=== PATIENT | female | born 1965 | race Caucasian/White ===

== ENCOUNTER 2017-05-13 09:52 | Emergency (ER) | payer OTHER ==
[~2017-05-13] VITALS: Ht 160 cm; Wt 64.0 kg
[2017-05-13 10:02] VITALS: BP 146/74
--- NOTE | 2017-05-13 10:08 | NUR ---
PATIENT AMBULATED TO BED 7 AT THIS TIME.
[2017-05-13] MEDS ORDERED: NACL 0.9% 1,000 ML IV ONE (10:45)
[2017-05-13] MEDS ORDERED: HYDROmorphone 1 MG/ML AMP IVP ONE (10:45)
[2017-05-13] MEDS ORDERED: ONDANSETRON 4 MG/2 ML VIAL IVP ONE (10:45)
--- NOTE | 2017-05-13 10:48 | NUR ---
Pt refusing IV insertion and blood draw. Pt states "I'm okay, I just want to rest." Dr. Bobby made aware.
[2017-05-13] MEDS ORDERED: ONDANSETRON 4 MG ODT PO ONE (10:50)
[2017-05-13 11:01] VITALS: BP 128/81
== END 2017-05-13 11:01 | disposition home or self-care (01) ==
LOC: MED 09:52
DX: T61.771A Other fish poisoning, accidental (unintentional), initial encounter (principal); Y92.89 Other specified places as the place of occurrence of the external cause
CPT/HCPCS: 36415; 81002; 81025; 99283

== ENCOUNTER 2017-12-24 07:06 | Outpatient (CLI) | payer OTHER ==
[2017-12-24 07:47] LABS: BASOPHILS # (AUTO) 0.2 K/uL (0.00-0.22); BASOPHILS % (AUTO) 4.5 % (0.0-2.0); EOSINOPHILS # (AUTO) 0.1 K/uL (0-0.4); HEMATOCRIT 42.4 % (36-48); HEMOGLOBIN 13.8 g/dL (12.0-16.0); LYMPHOCYTES # (AUTO) 1.9 K/uL (2.5-16.5); LYMPHOCYTES % (AUTO) 37.6 % (20.5-51.1); MEAN CORPUSCULAR HEMOGLOBIN 30 pg (27-31); MEAN CORPUSCULAR HGB CONC 33 g/dL (33-37); MEAN CORPUSCULAR VOLUME 91 fL (80-94); MONOCYTES # (AUTO) 0.4 K/uL (0.8-1.0); MONOCYTES % (AUTO) 8.4 % (1.7-9.3); NEUTROPHILS # (AUTO) 2.4 K/uL (1.8-7.7); NEUTROPHILS % (AUTO) 46.5 % (42.2-75.2); PLATELET COUNT (AUTO) 235 K/uL (140-450); RED BLOOD CELL COUNT(AUTO) 4.67 MIL/uL (4.20-5.40); RED CELL DISTRIBUTION WIDTH 12.4 % (11.6-13.7)
[2017-12-24 08:02] LABS: ALBUMIN 3.5 g/dL (3.4-5.0); ANION GAP 9.3 (8-16); CARBON DIOXIDE 30.6 mmol/L (21-32); CREATININE 0.6 mg/dL (0.6-1.3); POTASSIUM 3.9 mmol/L (3.5-5.1); TOTAL BILIRUBIN 0.4 mg/dL (0.0-1.0)
[2017-12-24 08:14] LABS: CHOL/HDL RATIO 2.9 (1-4.5)
== END 2017-12-24 19:37 | disposition home or self-care (01) ==
LOC: MLB 07:06
PROVIDERS: ATTEND Student in an Organized Health Care Education/Training Program
DX: Z00.01 Encounter for general adult medical examination with abnormal findings (principal); Z86.39 Personal history of other endocrine, nutritional and metabolic disease; Z12.39 Encounter for other screening for malignant neoplasm of breast
CPT/HCPCS: 36415; 80053; 85025

== ENCOUNTER 2018-06-07 17:33 | Emergency (ER) | payer OTHER ==
[~2018-06-07] VITALS: Ht 162.6 cm; Wt 63.5 kg
[2018-06-07 17:36] VITALS: BP 136/88
--- NOTE | 2018-06-07 17:40 | NUR ---
53Y/F BIB CO-WORKER TO ER C/O ANXIETY ATTACK X TODAY 20 MINUTES AGO. PT STATES "SHE HAS BEEN GOING THROUGH A LOT OF STRESS LATELY". PT IS AAOX 4; VSS; BREATHING EVEN AND UNLABORED AT THIS TIME; BED DOWN; BEDRAIL UP X 1; ER MD AWARE OF PT CONDITION.
--- NOTE | 2018-06-07 18:10 | NUR ---
Note melidaone in EDM - 06/07/18 at 1904 by MEDFL Patient discharged with v/s stable. Written and verbal after care instructions given and explained. Patient alert, oriented and verbalized understanding of instructions. Ambulatory with steady gait. All questions addressed prior to discharge. ID band removed. Patient advised to follow up with PMD. Rx of xanax given. Patient educated on indication of medication including possible reaction and side effects. Opportunity to ask questions provided and answered.
--- NOTE | 2018-06-07 18:18 | NUR ---
Patient being evaluated by physician at bedside.
[2018-06-07] MEDS ORDERED: LORazepam 2 MG/ML VIAL IM ONE (18:20)
[2018-06-07 19:04] VITALS: BP 134/85
== END 2018-06-07 19:04 | disposition home or self-care (01) ==
LOC: MED 17:33
DX: F41.9 Anxiety disorder, unspecified (principal); Z88.0 Allergy status to penicillin
CPT/HCPCS: 96372; 99284; J2060

== ENCOUNTER 2018-09-14 23:08 | Emergency (ER) | payer OTHER ==
[~2018-09-14] VITALS: Ht 162.6 cm; Wt 65.8 kg
[2018-09-14 23:10] VITALS: BP 141/77
[2018-09-14] MEDS ORDERED: ONDANSETRON 4 MG ODT PO ONE (23:55)
[2018-09-15 00:28] VITALS: BP 141/77
== END 2018-09-15 00:29 | disposition home or self-care (01) ==
LOC: MED 23:08
DX: R11.2 Nausea with vomiting, unspecified (principal); R19.7 Diarrhea, unspecified; R10.13 Epigastric pain; Z88.0 Allergy status to penicillin
CPT/HCPCS: 81025; 99283; Q0162; 81002

== ENCOUNTER 2018-10-22 21:20 | Emergency (ER) | payer OTHER ==
[~2018-10-22] VITALS: Ht 157.5 cm; Wt 61.2 kg
[2018-10-22 21:22] VITALS: BP 139/89
--- NOTE | 2018-10-22 21:22 | NUR ---
TO BED # 3 AMBULATORY , REPORT GIVEN TO ARMANDO RUBI
--- NOTE | 2018-10-22 21:32 | NUR ---
Dr. Gallo evaluating patient at bedside.
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
[2018-10-22] MEDS ORDERED: PHENAZOPYRIDINE 100 MG TAB PO ONE (21:40)
[2018-10-22] MEDS ORDERED: CIPROFLOXACIN 250 MG TAB PO ONE (21:40)
[2018-10-22] MEDS ORDERED: cefTRIAXone 1,000 MG in LIDOCAINE MPF 1% - 5 mL VIAL 2.1 ML IM ONE (21:45)
[2018-10-22 21:56] LABS: APPEARANCE,URINE CLOUDY (CLEAR); COLOR,URINE YELLOW (YELLOW); UGLUCOSE NEGATIVE (NEGATIVE)
[2018-10-22 21:57] LABS: BILIRUBIN,URINE NEGATIVE (NEGATIVE); BLOOD, URINE TRACE (NEGATIVE); LEUKOCYTE ESTERASE ,URINE 3+ (NEGATIVE); NITRITE, URINE NEGATIVE (NEGATIVE)
[2018-10-22 22:02] LABS: RBC,URINE 3-10 (FEW) /HPF (0-5); WBC,URINE 20-60 /HPF (0-5)
[2018-10-22 22:08] VITALS: BP 139/89
--- NOTE | 2018-10-22 22:08 | NUR ---
Patient discharged with v/s stable. Written and verbal after care instructions given and explained. Patient alert, oriented and verbalized understanding of instructions. Ambulatory with steady gait. All questions addressed prior to discharge. ID band removed. Patient advised to follow up with PMD. Rx of phenazopyridine hydrochloride and ciprofloxacin was given. Patient educated on indication of medication including possible reaction and side effects. Opportunity to ask questions provided and answered.
== END 2018-10-22 22:08 | disposition home or self-care (01) ==
LOC: MED 21:20
DX: N39.0 Urinary tract infection, site not specified (principal)
CPT/HCPCS: 81001; 87086; 96372; 99283; J0696; J2001

== ENCOUNTER 2019-04-20 07:28 | Outpatient (CLI) | payer OTHER ==
[2019-04-20 08:44] LABS: BASOPHILS % (AUTO) 0.7 % (0.0-2.0); EOSINOPHILS # (AUTO) 0.1 K/uL (0-0.4); EOSINOPHILS % (AUTO) 2.2 % (0.0-4.0); HEMATOCRIT 42.6 % (36-48); HEMOGLOBIN 14.1 g/dL (12.0-16.0); LYMPHOCYTES # (AUTO) 1.7 K/uL (2.5-16.5); MEAN CORPUSCULAR HEMOGLOBIN 30 pg (27-31); MEAN CORPUSCULAR HGB CONC 33 g/dL (33-37); MEAN CORPUSCULAR VOLUME 90.4 fL (80-94); MONOCYTES # (AUTO) 0.5 K/uL (0.8-1.0); MONOCYTES % (AUTO) 10.5 % (1.7-9.3); NEUTROPHILS # (AUTO) 2.3 K/uL (1.8-7.7); NEUTROPHILS % (AUTO) 49.6 % (42.2-75.2); PLATELET COUNT (AUTO) 264 K/uL (140-450); RED BLOOD CELL COUNT(AUTO) 4.71 MIL/uL (4.20-5.40); WHITE BLOOD COUNT (AUTO) 4.7 K/uL (4.8-10.8)
[2019-04-20 08:51] LABS: BILIRUBIN,URINE NEGATIVE (NEGATIVE); BLOOD, URINE NEGATIVE (NEGATIVE); COLOR,URINE YELLOW (YELLOW); LEUKOCYTE ESTERASE ,URINE NEGATIVE (NEGATIVE); NITRITE, URINE NEGATIVE (NEGATIVE); PH,URINE 7.5 (5.0-9.0); UGLUCOSE NEGATIVE (NEGATIVE)
[2019-04-20 08:56] LABS: APPEARANCE,URINE CLOUDY (CLEAR)
[2019-04-20 08:57] LABS: RBC,URINE 0-5 /HPF (0-5); WBC,URINE 0-5 /HPF (0-5)
[2019-04-20 09:12] LABS: ALBUMIN 3.8 g/dL (3.4-5.0); ANION GAP 10.4 (8-16); CHOL/HDL RATIO 2.8 (1-4.5); CREATININE 0.6 mg/dL (0.6-1.3); FREE T4 (FREE THYROXINE) 0.9 ng/dL (0.76-1.46); MAGNESIUM 2.2 mg/dL (1.8-2.4); POTASSIUM 3.4 mmol/L (3.5-5.1); THYROID STIMULATING HORMONE 4.76 uIU/mL (0.34-3.74); TOTAL BILIRUBIN 0.4 mg/dL (0.0-1.0)
== END 2019-04-20 21:04 | disposition home or self-care (01) ==
LOC: MMA 07:28
PROVIDERS: ATTEND Family Medicine
DX: Z00.00 Encounter for general adult medical examination without abnormal findings (principal); Z86.39 Personal history of other endocrine, nutritional and metabolic disease
CPT/HCPCS: 36415; 80053; 81001; 82306; 83036; 83735; 84439; 84443; 85025

== ENCOUNTER 2019-11-21 14:57 | Emergency (ER) | payer OTHER ==
[~2019-11-21] VITALS: Ht 165.1 cm; Wt 63.5 kg
[2019-11-21 15:00] VITALS: BP 140/91
--- NOTE | 2019-11-21 15:10 | NUR ---
PT TRIAGED, SENT BACK TO LOBBY AWAITING FOR BED
--- NOTE | 2019-11-21 16:22 | NUR ---
PT AMBULATED TO ER BED 9
--- NOTE | 2019-11-21 16:30 | NUR ---
AAO X4 54 YR OLD FEMALE BIB SELF C/O SORE THROAT AND COUGH, X2 DAYS. PT AFEBRILE DENIES MED HX OR RX. DENIES N/V/D
[2019-11-21 19:00] VITALS: BP 158/81
== END 2019-11-21 19:00 | disposition home or self-care (01) ==
LOC: MED 14:57
DX: J04.0 Acute laryngitis (principal); R49.1 Aphonia
CPT/HCPCS: 87081; 87804; 99283

== ENCOUNTER 2020-05-12 22:42 | Emergency (ER) | payer OTHER ==
[~2020-05-12] VITALS: Ht 157.5 cm; Wt 61.7 kg
--- NOTE | 2020-05-12 22:49 | NUR ---
PT TAKEN TO CHAIR C
[2020-05-12 22:53] VITALS: BP 167/78
--- NOTE | 2020-05-12 22:55 | NUR ---
PT MOVED TO BED 11
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
--- NOTE | 2020-05-12 23:06 | NUR ---
Dr. Sanders examining patient.
[2020-05-12] MEDS ORDERED: LORazepam 2 MG/ML VIAL IM ONE (23:20)
--- NOTE | 2020-05-12 23:28 | NUR ---
ATIVAN ADMINISTERED ORDERED
--- NOTE | 2020-05-12 23:30 | NUR ---
Patient discharged with v/s stable. Written and verbal after care instructions about muscle sprain, insomnia given and explained. Patient alert, oriented and verbalized understanding of instructions. Ambulatory with steady gait. All questions addressed prior to discharge. ID band removed. Patient advised to follow up with PMD. Rx of robaxin and restoril given. Patient educated on indication of medication including possible reaction and side effects. Opportunity to ask questions provided and answered.
[2020-05-12 23:35] VITALS: BP 167/78
== END 2020-05-12 23:30 | disposition home or self-care (01) ==
LOC: MED 22:42
DX: S46.811A Strain of other muscles, fascia and tendons at shoulder and upper arm level, right arm, initial encounter (principal); S46.812A Strain of other muscles, fascia and tendons at shoulder and upper arm level, left arm, initial encounter; G47.00 Insomnia, unspecified; X58.XXXA Exposure to other specified factors, initial encounter; Y93.89 Activity, other specified; Y92.89 Other specified places as the place of occurrence of the external cause; Y99.8 Other external cause status
CPT/HCPCS: 96372; 99283; J2060

== ENCOUNTER 2020-06-03 16:12 | Outpatient (CLI) | payer OTHER ==
[2020-06-03 16:55] LABS: BASOPHILS % (AUTO) 0.3 % (0.0-2.0); EOSINOPHILS # (AUTO) 0.1 K/uL (0-0.4); EOSINOPHILS % (AUTO) 2.2 % (0.0-4.0); HEMOGLOBIN 13.7 g/dL (12.0-16.0); LYMPHOCYTES # (AUTO) 1.6 K/uL (2.5-16.5); LYMPHOCYTES % (AUTO) 25.7 % (20.5-51.1); MEAN CORPUSCULAR HEMOGLOBIN 31 pg (27-31); MEAN CORPUSCULAR HGB CONC 33 g/dL (33-37); MEAN CORPUSCULAR VOLUME 91.6 fL (80-94); MONOCYTES # (AUTO) 0.5 K/uL (0.8-1.0); NEUTROPHILS # (AUTO) 3.9 K/uL (1.8-7.7); NEUTROPHILS % (AUTO) 63.8 % (42.2-75.2); PLATELET COUNT (AUTO) 240 K/uL (140-450); RED BLOOD CELL COUNT(AUTO) 4.48 MIL/uL (4.20-5.40); RED CELL DISTRIBUTION WIDTH 13.1 % (11.6-13.7); WHITE BLOOD COUNT (AUTO) 6.1 K/uL (4.8-10.8)
[2020-06-03 18:20] LABS: ALBUMIN 3.8 g/dL (3.4-5.0); ANION GAP 15.5 (8-16); CARBON DIOXIDE 26.2 mmol/L (21-32); CREATININE 0.6 mg/dL (0.6-1.3); POTASSIUM 3.7 mmol/L (3.5-5.1); THYROID STIMULATING HORMONE 2.39 uIU/mL (0.34-3.74); TOTAL BILIRUBIN 0.2 mg/dL (0.0-1.0)
== END 2020-06-03 18:38 | disposition home or self-care (01) ==
LOC: MLB 16:12
PROVIDERS: ATTEND Obstetrics & Gynecology
DX: N95.1 Menopausal and female climacteric states (principal)
CPT/HCPCS: 36415; 80053; 82306; 82607; 82670; 83001; 84403; 84436; 84443; 84480; 85025; 86376

== ENCOUNTER 2020-06-25 08:08 | Outpatient (CLI) | payer OTHER ==
[2020-06-26 08:14] LABS: T4 (THYROXINE) 5.7 ug/dL (4.5-12.0); TRIIODOTHYRONINE FREE 2.6 pg/mL (2.0-4.4)
== END 2020-06-25 21:27 | disposition home or self-care (01) ==
LOC: MLB 08:08
PROVIDERS: ATTEND Obstetrics & Gynecology
DX: E03.9 Hypothyroidism, unspecified (principal)
CPT/HCPCS: 36415; 84144; 84436; 84443; 84481

== ENCOUNTER 2020-08-03 15:13 | Outpatient (CLI) | payer OTHER ==
[2020-08-04 08:11] LABS: T4 (THYROXINE) 6.2 ug/dL (4.5-12.0); TRIIODOTHYRONINE FREE 3.6 pg/mL (2.0-4.4)
== END 2020-08-03 19:42 | disposition home or self-care (01) ==
LOC: MLB 15:13
PROVIDERS: ATTEND Obstetrics & Gynecology
DX: E03.9 Hypothyroidism, unspecified (principal)
CPT/HCPCS: 36415; 84436; 84443; 84481

== ENCOUNTER 2020-08-27 16:20 | Outpatient (CLI) | payer OTHER ==
[2020-08-29 08:11] LABS: T4 (THYROXINE) 5.4 ug/dL (4.5-12.0); TRIIODOTHYRONINE FREE 3.2 pg/mL (2.0-4.4)
== END 2020-08-27 19:56 | disposition home or self-care (01) ==
LOC: MLB 16:20
PROVIDERS: ATTEND Obstetrics & Gynecology
DX: E03.9 Hypothyroidism, unspecified (principal)
CPT/HCPCS: 36415; 84436; 84443; 84481

== ENCOUNTER 2020-09-24 16:28 | Outpatient (CLI) | payer OTHER ==
[2020-09-24 20:29] LABS: FREE T4 (FREE THYROXINE) 0.71 ng/dL (0.76-1.46); THYROID STIMULATING HORMONE 0.2 uIU/mL (0.34-3.74)
== END 2020-09-24 22:01 | disposition home or self-care (01) ==
LOC: MLB 16:28
PROVIDERS: ATTEND Obstetrics & Gynecology
DX: E03.9 Hypothyroidism, unspecified (principal)
CPT/HCPCS: 36415; 84439; 84443; 84480

== ENCOUNTER 2020-12-10 16:59 | Outpatient (CLI) | payer OTHER ==
[2020-12-11 14:14] LABS: TRIIODOTHYRONINE FREE 5.5 pg/mL (2.0 - 4.4)
== END 2020-12-10 21:06 | disposition home or self-care (01) ==
LOC: MLB 16:59
PROVIDERS: ATTEND Obstetrics & Gynecology
DX: E03.9 Hypothyroidism, unspecified (principal); E55.9 Vitamin D deficiency, unspecified; E53.8 Deficiency of other specified B group vitamins
CPT/HCPCS: 36415; 82306; 82607; 84481

== ENCOUNTER → 2021-01-14 | Outpatient (CLI) | payer OTHER | END | disposition home or self-care (01) | LOC: MLB 16:58 | PROVIDERS: ATTEND Family Medicine | DX: E03.9 Hypothyroidism, unspecified (principal); E78.5 Hyperlipidemia, unspecified | CPT/HCPCS: 36415; 84481 ==

== ENCOUNTER 2021-05-18 16:19 | Outpatient (CLI) | payer OTHER | END 2021-05-18 19:49 | disposition home or self-care (01) | LOC: MLB 16:19 | PROVIDERS: ATTEND Family Medicine | DX: E55.9 Vitamin D deficiency, unspecified (principal); E53.8 Deficiency of other specified B group vitamins | CPT/HCPCS: 36415; 82306; 82607 ==

== ENCOUNTER 2022-01-19 08:10 | Outpatient (CLI) | payer OTHER ==
[2022-01-19 09:15] LABS: BASOPHILS # (AUTO) 0.1 K/uL (0.00-0.22); BASOPHILS % (AUTO) 1.2 % (0.0-2.0); EOSINOPHILS # (AUTO) 0.1 K/uL (0-0.4); EOSINOPHILS % (AUTO) 2.9 % (0.0-4.0); HEMATOCRIT 41.8 % (36-48); LYMPHOCYTES # (AUTO) 1.6 K/uL (2.5-16.5); LYMPHOCYTES % (AUTO) 35.2 % (20.5-51.1); MEAN CORPUSCULAR HEMOGLOBIN 30 pg (27-31); MEAN CORPUSCULAR HGB CONC 33 g/dL (33-37); MEAN CORPUSCULAR VOLUME 90.8 fL (80-94); MONOCYTES # (AUTO) 0.3 K/uL (0.8-1.0); MONOCYTES % (AUTO) 7.5 % (1.7-9.3); NEUTROPHILS # (AUTO) 2.4 K/uL (1.8-7.7); NEUTROPHILS % (AUTO) 53.2 % (42.2-75.2); PLATELET COUNT (AUTO) 234 K/uL (140-450); RED CELL DISTRIBUTION WIDTH 13.3 % (11.6-13.7); WHITE BLOOD COUNT (AUTO) 4.4 K/uL (4.8-10.8)
[2022-01-19 09:45] LABS: ALBUMIN 3.6 g/dL (3.4-5.0); ANION GAP 8.5 (8-16); CREATININE 0.5 mg/dL (0.6-1.3); FREE T4 (FREE THYROXINE) 0.8 ng/dL (0.76-1.46); POTASSIUM 3.5 mmol/L (3.5-5.1); THYROID STIMULATING HORMONE 5.03 uIU/mL (0.34-3.74); TOTAL BILIRUBIN 0.5 mg/dL (0.0-1.0)
[2022-01-20 16:06] LABS: FOLIC ACID 13.5 ng/mL (>3.0)
== END 2022-01-19 20:08 | disposition home or self-care (01) ==
LOC: MLB 08:10
PROVIDERS: ATTEND Obstetrics & Gynecology
DX: Z00.00 Encounter for general adult medical examination without abnormal findings (principal); Z78.0 Asymptomatic menopausal state
CPT/HCPCS: 36415; 80053; 82306; 82607; 82746; 84439; 84443; 85025

== ENCOUNTER 2022-02-01 05:20 | Emergency (ER) | payer OTHER ==
[~2022-02-01] VITALS: Ht 160 cm; Wt 63.0 kg
[2022-02-01 05:24] VITALS: BP 149/90
--- NOTE | 2022-02-01 05:33 | NUR ---
pt taken to bed11
--- NOTE | 2022-02-01 05:38 | NUR ---
56 Y/O FEMALE BIB SELF, C/O LATERAL RIGHT KNEE PAIN. PATIENT PRESENTS TO ED WITH UNSTEADY GAIT AND PAIN. PT STATES WHILE AT HOME SHE WAS CLEANING AND THINKS SHE TWISTED HER LEG WRONG, HER LEG STARTED TO GIVE OUT THEN SHE CAUGHT HERSELF BEFORE FALLING. DENIES ANY LOSS OF SENSATION, NO POP HEARD OR FELT, DENIES N/V/D; SKIN IS PINK/WARM/DRY; AAOX4; PT DENIES ANY FEVER, CP, SOB, OR COUGH AT THIS TIME; PATIENT STATES PAIN OF 10/10 AT THIS TIME; VSS; PT WALKED TO BED; PATIENT POSITIONED FOR COMFORT; HOB ELEVATED; BEDRAILS UP X1; BED DOWN. ER MD MADE AWARE OF PT STATUS. HX: HYPOTHYROIDISM, ANX NKDA MED:CITALOPRAM, LOVOTHYROXINE
[2022-02-01] MEDS: KETOROLAC 60 MG/2 ML VIAL IM ONE (05:53)
--- NOTE | 2022-02-01 06:01 | NUR ---
XRAY AT BEDSIDE
[2022-02-01] MEDS ORDERED: ACET-8386 PO ×2 (06:40→17:58)
[2022-02-01] MEDS ORDERED: NAPR-54 PO ×2 (06:40→17:58)
[2022-02-01 06:57] VITALS: BP 149/90
--- NOTE | 2022-02-01 06:58 | NUR ---
Patient discharged with v/s stable. Written and verbal after care instructions given and explained. Patient alert, oriented and verbalized understanding of instructions. Ambulatory with steady gait. All questions addressed prior to discharge. ID band removed. Patient advised to follow up with PMD. Rx of HYDROCODONE/ACETAMINOPHEN AND NAPROXEN given. Patient educated on indication of medication including possible reaction and side effects. Opportunity to ask questions provided and answered. VSS, A/OX4, AMBULATORY, UNLABORED BREATHING, AND CALM DEMEANOR.
--- NOTE | 2022-02-01 08:26 | NUR ---
DR KEENAN CALLED PT AND VERIFIED THAT SHE NEVER HAD [employer]NEE IMMOBILIZER APPLIED. PT STATED THAT SHE WOULD RETURN [facility] 02/03/22 FOR IMMOBILIZER. ORDER IS IN PLACE.
== END 2022-02-01 06:57 | disposition home or self-care (01) ==
LOC: MED 05:20
DX: S83.8X1A Sprain of other specified parts of right knee, initial encounter (principal); X58.XXXA Exposure to other specified factors, initial encounter; Y93.89 Activity, other specified; Y92.89 Other specified places as the place of occurrence of the external cause; Y99.8 Other external cause status
CPT/HCPCS: 29505; 73562; 96372; 99283; J1885; Q0092

== ENCOUNTER 2022-06-29 16:08 | Outpatient (CLI) | payer OTHER ==
[~2022-06-29 16:08] MED LIST: ACET-8386 PO; NAPR-54 PO
[2022-06-30 07:08] LABS: T4 (THYROXINE) 6.2 ug/dL (4.5-12.0); TRIIODOTHYRONINE FREE 2.6 pg/mL (2.0-4.4)
== END 2022-06-29 20:00 | disposition home or self-care (01) ==
LOC: MLB 16:08
PROVIDERS: ATTEND Obstetrics & Gynecology
DX: E03.9 Hypothyroidism, unspecified (principal)
CPT/HCPCS: 36415; 84436; 84443; 84481

== ENCOUNTER 2022-08-10 16:35 | Outpatient (CLI) | payer OTHER ==
[2022-08-11 07:09] LABS: T4 (THYROXINE) 5.5 ug/dL (4.5-12.0); TRIIODOTHYRONINE FREE 2.6 pg/mL (2.0-4.4)
== END 2022-08-10 21:15 | disposition home or self-care (01) ==
LOC: MLB 16:35
PROVIDERS: ATTEND Obstetrics & Gynecology
DX: E03.9 Hypothyroidism, unspecified (principal)
CPT/HCPCS: 36415; 84436; 84443; 84481

== ENCOUNTER 2022-09-24 16:57 | Outpatient (CLI) | payer OTHER ==
[2022-09-25 06:07] LABS: T4 (THYROXINE) 6.3 ug/dL (4.5-12.0)
== END 2022-09-24 20:29 | disposition home or self-care (01) ==
LOC: MLB 16:57
PROVIDERS: ATTEND Obstetrics & Gynecology
DX: E07.9 Disorder of thyroid, unspecified (principal)
CPT/HCPCS: 36415; 84436; 84443; 84480

== ENCOUNTER 2022-10-22 16:54 | Outpatient (CLI) | payer OTHER ==
[~2022-10-22 16:54] MED LIST changes: -ACET-8386 PO; +ACET-8905 PO
[2022-10-23 07:07] LABS: T4 (THYROXINE) 7.9 ug/dL (4.5-12.0)
== END 2022-10-22 20:14 | disposition home or self-care (01) ==
LOC: MLB 16:54
PROVIDERS: ATTEND Obstetrics & Gynecology
DX: E03.9 Hypothyroidism, unspecified (principal)
CPT/HCPCS: 36415; 84436; 84443; 84481

== ENCOUNTER 2022-11-23 18:01 | Outpatient (CLI) | payer OTHER ==
[2022-11-23 19:03] LABS: ALBUMIN 3.2 g/dL (3.4-5.0); ANION GAP 12.3 (8-16); ASPARTATE AMINOTRANSFERASE 16 U/L (15-37); CARBON DIOXIDE 29.4 mmol/L (21-32); CHLORIDE 104 mmol/L (98-107); CREATININE 0.5 mg/dL (0.6-1.3); GFR ARICAN-AMERICAN 162 mL/min (>90); GLUCOSE 128 mg/dL (74-106); POTASSIUM 3.7 mmol/L (3.5-5.1); SODIUM SERUM 142 mmol/L (136-145); THYROID STIMULATING HORMONE < 0.01 uIU/mL (0.34-3.74); TOTAL BILIRUBIN 0.2 mg/dL (0.0-1.0); UREA NITROGEN, BLOOD 12 mg/dL (7-18)
== END 2022-11-23 20:22 | disposition home or self-care (01) ==
LOC: MLB 18:01
PROVIDERS: ATTEND Obstetrics & Gynecology
DX: E03.9 Hypothyroidism, unspecified (principal)
CPT/HCPCS: 36415; 80053; 82306; 82607; 84436; 84443; 84480

== ENCOUNTER 2022-12-24 18:00 | Outpatient (CLI) | payer OTHER ==
[2022-12-25 12:07] LABS: T4 (THYROXINE) 5.3 ug/dL (4.5-12.0)
== END 2022-12-24 19:49 | disposition home or self-care (01) ==
LOC: MLB 18:00
PROVIDERS: ATTEND Obstetrics & Gynecology
DX: E03.9 Hypothyroidism, unspecified (principal); E55.9 Vitamin D deficiency, unspecified
CPT/HCPCS: 36415; 82306; 82607; 84436; 84443; 84480

== ENCOUNTER 2023-02-20 17:43 | Outpatient (CLI) | payer OTHER ==
[2023-02-22 08:08] LABS: T4 FREE (DIRECT) 0.86 ng/dL (0.82-1.77); TRIIODOTHYRONINE FREE 2.7 pg/mL (2.0-4.4)
== END 2023-02-20 21:47 | disposition home or self-care (01) ==
LOC: MLB 17:43
PROVIDERS: ATTEND Obstetrics & Gynecology
DX: E03.9 Hypothyroidism, unspecified (principal)
CPT/HCPCS: 36415; 84439; 84443; 84481

== ENCOUNTER 2023-05-01 17:31 | Outpatient (CLI) | payer OTHER ==
[2023-05-03 08:08] LABS: TRIIODOTHYRONINE FREE 2.9 pg/mL (2.0-4.4)
[2023-05-03 17:21] LABS: T4 FREE (DIRECT) 0.7 ng/ml (0.82-1.77)
== END 2023-05-01 20:57 | disposition home or self-care (01) ==
LOC: MLB 17:31
PROVIDERS: ATTEND Obstetrics & Gynecology
DX: E03.9 Hypothyroidism, unspecified (principal)
CPT/HCPCS: 36415; 84439; 84443; 84481

== ENCOUNTER 2023-07-29 18:18 | Outpatient (CLI) | payer OTHER ==
[2023-07-30 08:08] LABS: T4 FREE (DIRECT) 0.74 ng/dL (0.82-1.77); TRIIODOTHYRONINE FREE 2.9 pg/mL (2.0-4.4); VITAMIN D, 25-HYDROXY 97.8 ng/mL (30.0-100.0)
== END 2023-07-29 20:42 | disposition home or self-care (01) ==
LOC: MLB 18:18
PROVIDERS: ATTEND Obstetrics & Gynecology
DX: N95.1 Menopausal and female climacteric states (principal)
CPT/HCPCS: 36415; 82306; 84439; 84443; 84481

== ENCOUNTER 2023-08-06 16:22 | Emergency (ER) | payer OTHER ==
[~2023-08-06] VITALS: Ht 152.4 cm; Wt 66.2 kg
[2023-08-06 17:22] VITALS: BP 130/82; PULSE 82; RESP 16; TEMP 98; O2SAT 99
[2023-08-06] MEDS ORDERED: KETOROLAC 30 MG/ML VIAL IM ONE (18:55)
== END 2023-08-06 19:34 | disposition home or self-care (01) ==
LOC: MED 16:22
DX: M25.561 Pain in right knee (principal); Z86.39 Personal history of other endocrine, nutritional and metabolic disease; Z79.899 Other long term (current) drug therapy; Z79.1 Long term (current) use of non-steroidal anti-inflammatories (NSAID)
CPT/HCPCS: 73562; 96372; 99283; J1885